=== PATIENT | male | born 1985 | race African-American/Black ===

== ENCOUNTER 2022-04-21 09:15 | Emergency (ER) | payer MEDICAID ==
[~2022-04-21] VITALS: Ht 188 cm; Wt 118.0 kg
[2022-04-21] MEDS ORDERED: AMOXICILLIN/POTASSIUM CLAVULANATE 875/125MG TAB PO ONE (09:30)
[2022-04-21] MEDS ORDERED: IBUP-2029 MT (09:32)
[2022-04-21] MEDS ORDERED: AMOX1TAB16 MT (09:32)
[2022-04-21 09:52] VITALS: BP 142/64
== END 2022-04-21 09:54 | disposition home or self-care (01) ==
LOC: ER 09:15
DX: R22.0 Localized swelling, mass and lump, head (principal)
CPT/HCPCS: 99283